=== PATIENT | male | born 1955 | race Caucasian/White ===

== ENCOUNTER → 2016-10-29 | Outpatient (CLI) | payer BC, OTHER ==
--- NOTE | 2016-10-29 12:07 | XR ---
EXAMINATION TYPE: XR shoulder complete LT DATE OF EXAM: 10/29/2016 COMPARISON: NONE HISTORY: 61-year-old male lifting injury yesterday and pain, sprain TECHNIQUE: 3 views FINDINGS: AC joint appears intact with minimal marginal spurring. Subacromial space is preserved without tendin ous or bursal calcifications. Minimal degenerative inferior humeral head spurring. No acute fracture, subluxation, or dislocation. Visualized left hemithorax is clear. IMPRESSION: No acute osseous abnormality seen.
== END | disposition home or self-care (01) ==
LOC: RADXRMAIN 11:41
PROVIDERS: ATTEND Emergency Medicine
DX: S43.402A Unspecified sprain of left shoulder joint, initial encounter (principal)

== ENCOUNTER → 2017-07-13 | Outpatient (CLI) | payer BC, OTHER ==
--- NOTE | 2017-07-13 21:44 | MR ---
EXAMINATION TYPE: MR shoulder LT wo con DATE OF EXAM: 07/13/2017 COMPARISON: Left shoulder x-ray October 29, 2016 HISTORY: Left shoulder pain into upper arm since injury summer 2016 per order with difficulty raising overhead per patient TECHNIQUE: Multiplanar, multisequence imaging of the left shoulder is performed without contrast. FINDINGS: Rotator Cuff: Supraspinatus and infraspinatus tendons are both intact humeral head attachment. Some i ncreased signal in distal tendon fibers is present. No significant retracted tear is identified . Sub scapularis tendon is intact. Some surrounding fluid is seen along superior aspect seen best axial nadeen ge 14 and sagittal image 21. Rotator cuff muscle bulk is preserved. Acromioclavicular Joint: There is capsular hypertrophy and joint space loss at acromioclavicular join t. Inferior fat plane is maintained. Distal acromion morphology is unremarkable. Glenohumeral Joint: There is fairly moderate size glenohumeral joint effusion. Labrum: The labrum appears grossly intact given limitation of non-arthrogram study. Biceps Tendon: The long head of biceps is in normal location within bicipital groove. There is focus of increased signal seen best sagittal image 15 consistent with partial tear intra-articular portion near anchor. Some surrounding fluid signal is likely product of glenohumeral joint effusion. Bone marrow signal: Some subchondral cystic change posterolateral humeral head is present. Other: No additional significant abnormality is appreciated. IMPRESSION: 1. No distinct rotator cuff or labral tear identified. Mild tendinosis distal supraspinatus and infra spinatus tendons. 2. Focal tendinosis/partial tear deep intra-articular portion of long head of biceps tendon. No full- thickness tear is seen. 3. Moderate size glenohumeral joint effusion.
== END | disposition home or self-care (01) ==
LOC: RADMRIMAIN 17:26
PROVIDERS: ATTEND Family Medicine
DX: S46.912A Strain of unspecified muscle, fascia and tendon at shoulder and upper arm level, left arm, initial encounter (principal); M25.412 Effusion, left shoulder; M67.814 Other specified disorders of tendon, left shoulder

== ENCOUNTER → 2017-08-24 | Outpatient (CLI) | payer BC, OTHER ==
[2017-08-24 08:57] LABS: Basophils % (A) 1 %; Eosinophils # (A) 0.1 k/uL (0-0.7); Eosinophils % (A) 1 %; HCT 43.6 % (39.0-53.0); Lymphocytes # (A) 2.2 k/uL (1.0-4.8); Lymphocytes % (A) 29 %; MCH 29.1 pg (25.0-35.0); MCHC 32.1 g/dL (31.0-37.0); MCV 90.8 fL (80.0-100.0); Mean Platelet Volume 7.4; Monocytes # (A) 0.6 k/uL (0-1.0); Monocytes % (A) 8 %; Neutrophils # (A) 4.6 k/uL (1.3-7.7); Neutrophils % (A) 60 %; Platelet Count 306 k/uL (150-450); RDW 13.1 % (11.5-15.5); WBC 7.6 k/uL (3.8-10.6)
[2017-08-24 09:07] LABS: Albumin 4.1 g/dL (3.5-5.0); Calcium 9.9 mg/dL (8.4-10.2); Total Bilirubin 0.7 mg/dL (0.2-1.3); Total Protein 6.7 g/dL (6.3-8.2)
== END | disposition home or self-care (01) ==
LOC: LABWHC1 08:17
PROVIDERS: ATTEND Family Medicine
DX: E78.5 Hyperlipidemia, unspecified (principal)
CPT/HCPCS: 36415; 80053; 80061; 85025

== ENCOUNTER → 2018-12-01 | Outpatient (CLI) | payer BC, OTHER ==
[2018-12-01 16:18] LABS: African American GFR (CKD) 67.8 (60.0-200.0); Anion Gap 9.3 mmol/L (4.00-12.00); BUN/Creat Ratio 12.31 Ratio (12.00-20.00); Calcium 9.6 mg/dL (8.7-10.3); Carbon Dioxide 23.7 mmol/L (21.6-31.8); Chol/HDL Ratio 4.12; LDL Cholesterol,Calculated 159.6 mg/dL (0.0-131.0); Non-African American GFR(CKD) 58.5 (60.0-200.0); Potassium 4.9 mmol/L (3.5-5.5); VLDL Calculation 24.4 mg/dL (5.00-40.00)
== END | disposition home or self-care (01) ==
LOC: LABWHC1 08:02
PROVIDERS: ATTEND Nurse Practitioner Adult Health
DX: Z00.01 Encounter for general adult medical examination with abnormal findings (principal); E78.5 Hyperlipidemia, unspecified; M19.91 Primary osteoarthritis, unspecified site; Z12.5 Encounter for screening for malignant neoplasm of prostate
CPT/HCPCS: 80061; 80048; 36415; G0103

== ENCOUNTER → 2020-12-10 | Outpatient (CLI) | payer BC, OTHER ==
--- NOTE | 2020-12-10 09:42 | CTL ---
EXAMINATION TYPE: CT Low Dose Lung DATE OF EXAM ORDERED: 12/10/2020 HISTORY: 65-year-old male Z77.090 Personal history of tobacco use, asbestos exposure. Lung cancer scr eening CT DLP: 98.[address] CTDI: 2.9 mGy Automated exposure control for dose reduction was used. SCREENING VISIT: Baseline COMPARISON: None TECHNIQUE: Low dose computed tomography scan was performed through the chest with coronal and sagitta l reconstructions. CT DIAGNOSTIC QUALITY: Satisfactory FINDINGS: Heart normal size without pericardial effusion. Three-vessel coronary artery calcifications are prese nt and are a marker for coronary artery disease. Aorta normal caliber with bovine configuration to the aortic arch. No thoracic lymphadenopathy by CT size criteria. Mild biapical pleural parenchymal scarring. Mild diffuse bronchial wall thickening. 3 mm pulmonary nodule left mid lung along the major fissure on axial image 98. No consolidation or pleural effusion. No honeycombing and no suspicious pleural plaques are seen. Visualized upper abdomen shows no gross abnormality. Bones: Some developing changes of dish made thoracic spine. No osseous destructive process. IMPRESSION: 1. LungRADS 2 - benign. Solitary 3 mm left mid lung pulmonary nodule on baseline. 2. No changes of asbestosis or asbestos related pleural disease at this time. 3. CAD with 3 vessel coronary artery calcifications. CT LUNG RAD AND CT CHEST RECOMMENDATION: Lung-Rad 2 Benign Appearance or Behavior: Continue annual sc reening with LDCT in 12 months.
== END | disposition home or self-care (01) ==
LOC: RADCTMAIN 07:14
PROVIDERS: ATTEND Internal Medicine
DX: Z12.2 Encounter for screening for malignant neoplasm of respiratory organs (principal); I25.10 Atherosclerotic heart disease of native coronary artery without angina pectoris; J92.0 Pleural plaque with presence of asbestos
CPT/HCPCS: 71271

== ENCOUNTER → 2020-12-10 | Outpatient (CLI) | payer BC, OTHER ==
--- NOTE | 2020-12-10 10:23 | US ---
EXAMINATION TYPE: US abdomen complete DATE OF EXAM: 12/10/2020 COMPARISON: NONE CLINICAL HISTORY: R10.13 Epigastric pain. Epigastric pain, nausea x 2 months EXAM MEASUREMENTS: Liver Length: 13.8 cm Gallbladder Wall: 0.1 cm CBD: 0.5 cm Spleen Length: 8.2 cm Right Kidney: 9.3 x 5.5 x 4.4 cm Left Kidney: 10.1 x 4.6 x 5.4 cm Pancreas: hyperechoic, prominent pancreatic duct = 3.3mm Liver: wnl Gallbladder: multiple mid and fundal non mobile hyperechoic wall foci noted suggests adenomyomatosis . Evidence for sonographic Nation's sign: no CBD: wnl Spleen: wnl Right Kidney: No hydronephrosis or masses seen Left Kidney: No hydronephrosis or masses seen Upper IVC: wnl Abd Aorta: size is wnl, intimal wall thickening is noted mid and inferiorly The liver is homogenous. The intrahepatic portion of the IVC is within normal limits. Common bile du ct is unremarkable. The visualized portions of the pancreas are homogenous. The spleen is unremarka ble. Kidneys are symmetric and free of hydronephrosis. No renal lesions are seen. IMPRESSION: Adenomyomatosis of the gallbladder.
== END | disposition home or self-care (01) ==
LOC: RADUSWWP 09:28
PROVIDERS: ATTEND Internal Medicine
DX: K82.8 Other specified diseases of gallbladder (principal)
CPT/HCPCS: 76700

== ENCOUNTER 2021-07-29 19:54 | Emergency (ER) | payer BC, MEDICARE ==
[2021-07-29] MEDS ORDERED: SODIUM CHLORIDE 0.9% 500 ML 500 ML IV STA (22:54)
--- NOTE | 2021-07-29 22:56 | ED ---
General Adult HPI - General Chief complaint: Abdominal Pain Stated complaint: Abdominal pain, nausea Time Seen by Provider: 07/29/21 22:46 Source: patient, RN notes reviewed Mode of arrival: ambulatory Limitations: no limitations - History of Present Illness Initial comments: Patient is a pleasant [age]-year-old male presenting to the emergency Departm ent with abdominal discomfort. Onset of symptoms was yesterday evening. Patient felt more of an ache this morning. Discomfort was epigastric however now is more right lower. Patient has mild nausea and mild decreased appetite. No vomiting. No constipation or diarrhea. No fever or chills. No back pain. No history of similar symptoms previously. Patient refuses pain and nausea medicine - Related Data Home Medications Medication Instructions Recorded Confirmed Multivitamins, Thera [Multivitamin 1 tab PO DAILY 07/29/21 07/29/21 (formulary)] Allergies Allergy/AdvReac Type Severity Reaction Status Date / Time methocarbamol [From Robaxin] Allergy Unknown Verified 07/29/21 22:58 Review of Systems ROS Statement: Those systems with pertinent positive or pertinent negative responses have been documented in the HPI. ROS Other: All systems not noted in ROS Statement are negative. Constitutional: Denies: fever Eyes: Denies: eye pain ENT: Denies: ear pain Respiratory: Denies: cough Cardiovascular: Denies: chest pain Endocrine: Denies: fatigue Gastrointestinal: Reports: abdominal pain, nausea. Denies: vomiting, diarrhea Genitourinary: Denies: dysuria Musculoskeletal: Denies: back pain Skin: Denies: rash Neurological: Denies: weakness Past Medical History Past Medical History: No Reported History History of Any Multi-Drug Resistant Organisms: None Reported Past Surgical History: Cholecystectomy Additional Past Surgical History / Comment(s): left shoulder surgery Past Psychological History: No Psychological Hx Reported Past Alcohol Use History: Rare Past Drug Use History: None Reported General Exam Limitations: no limitations General appearance: alert, in no apparent distress Head exam: Present: normocephalic Eye exam: Present: normal appearance Neck exam: Present: normal inspection Respiratory exam: Present: normal lung sounds bilaterally Cardiovascular Exam: Present: regular rate, normal rhythm Expanded Peripheral pulses: 2+: Dorsalis Pedis (R), Dorsalis Pedis (L) GI/Abdominal exam: Present: soft, tenderness (Mild tenderness epigastric and right lower quadrant), normal bowel sounds. Absent: distended, guarding, rebound, rigid, pulsatile mass Extremities exam: Present: normal inspection Neurological exam: Present: alert Psychiatric exam: Present: normal affect, normal mood Skin exam: Present: normal color Course Vital Signs 07/29/21 20:29 Temperature 98.4 F Pulse Rate 84 Respiratory 16 Rate Blood Pressure 153/88 O2 Sat by Pulse 96 Oximetry Medical Decision Making - Medical Decision Making Patient reevaluated and staying at bedside in no distress. Patient and family updated on results and need for follow-up - Lab Data Result diagrams: 07/29/21 23:00 07/29/21 23:00 Lab Results 07/29/21 07/29/21 07/29/21 Range/Units 23:00 23:00 23:00 WBC 8.8 (3.8-10.6) k/uL RBC 4.68 (4.30-5.90) m/uL Hgb 14.5 (13.0-17.5) gm/dL Hct 43.8 (39.0-53.0) % MCV 93.6 (80.0-100.0) fL MCH 31.0 (25.0-35.0) pg MCHC 33.1 (31.0-37.0) g/dL RDW 12.3 (11.5-15.5) % Plt Count 292 (150-450) k/uL MPV 8.1 Neutrophils % 45 % Lymphocytes % 42 % Monocytes % 7 % Eosinophils % 2 % Basophils % 2 % Neutrophils # 4.0 (1.3-7.7) k/uL Lymphocytes # 3.7 (1.0-4.8) k/uL Monocytes # 0.6 (0-1.0) k/uL Eosinophils # 0.2 (0-0.7) k/uL Basophils # 0.1 (0-0.2) k/uL PT 10.0 (9.0-12.0) sec INR 0.9 (<1.2) APTT 23.8 (22.0-30.0) sec Sodium 137 (137-145) mmol/L Potassium 4.3 (3.5-5.1) mmol/L Chloride 106 (98-107) mmol/L Carbon Dioxide 22 (22-30) mmol/L Anion Gap 9 mmol/L BUN 18 (9-20) mg/dL Creatinine 1.17 (0.66-1.25) mg/dL Est GFR (CKD-EPI)AfAm 75 (>60 ml/min/1.73 sqM) Est GFR (CKD-EPI)NonAf 65 (>60 ml/min/1.73 sqM) Glucose 94 (74-99) mg/dL Calcium 9.2 (8.4-10.2) mg/dL Total Bilirubin 0.5 (0.2-1.3) mg/dL AST 28 (17-59) U/L ALT 31 (4-49) U/L Alkaline Phosphatase 59 (38-126) U/L Total Protein 7.0 (6.3-8.2) g/dL Albumin 4.3 (3.5-5.0) g/dL Amylase 100 (30-110) U/L Lipase 442 H (23-300) U/L Urine Color Urine Appearance (Clear) Urine pH (5.0-8.0) Ur Specific [place] (1.001-1.035) Urine Protein (Negative) Urine Glucose (UA) (Negative) Urine Ketones (Negative) Urine Blood (Negative) Urine Nitrite (Negative) Urine Bilirubin (Negative) Urine Urobilinogen (<2.0) mg/dL Ur Leukocyte Esterase (Negative) Urine RBC (0-5) /hpf Urine WBC (0-5) /hpf Urine Mucus (None) /hpf 07/29/21 Range/Units 23:24 WBC (3.8-10.6) k/uL RBC (4.30-5.90) m/uL Hgb (13.0-17.5) gm/dL Hct (39.0-53.0) % MCV (80.0-100.0) fL MCH (25.0-35.0) pg MCHC (31.0-37.0) g/dL RDW (11.5-15.5) % Plt Count (150-450) k/uL MPV Neutrophils % % Lymphocytes % % Monocytes % % Eosinophils % % Basophils % % Neutrophils # (1.3-7.7) k/uL Lymphocytes # (1.0-4.8) k/uL Monocytes # (0-1.0) k/uL Eosinophils # (0-0.7) k/uL Basophils # (0-0.2) k/uL PT (9.0-12.0) sec INR (<1.2) APTT (22.0-30.0) sec Sodium (137-145) mmol/L Potassium (3.5-5.1) mmol/L Chloride (98-107) mmol/L Carbon Dioxide (22-30) mmol/L Anion Gap mmol/L BUN (9-20) mg/dL Creatinine (0.66-1.25) mg/dL Est GFR (CKD-EPI)AfAm (>60 ml/min/1.73 sqM) Est GFR (CKD-EPI)NonAf (>60 ml/min/1.73 sqM) Glucose (74-99) mg/dL Calcium (8.4-10.2) mg/dL Total Bilirubin (0.2-1.3) mg/dL AST (17-59) U/L ALT (4-49) U/L Alkaline Phosphatase (38-126) U/L Total Protein (6.3-8.2) g/dL Albumin (3.5-5.0) g/dL Amylase (30-110) U/L Lipase (23-300) U/L Urine Color Yellow Urine Appearance Clear (Clear) Urine pH 5.5 (5.0-8.0) Ur Specific [place] 1.019 (1.001-1.035) Urine Protein Negative (Negative) Urine Glucose (UA) Negative (Negative) Urine Ketones Negative (Negative) Urine Blood Negative (Negative) Urine Nitrite Negative (Negative) Urine Bilirubin Negative (Negative) Urine Urobilinogen <2.0 (<2.0) mg/dL Ur Leukocyte Esterase Negative (Negative) Urine RBC <1 (0-5) /hpf Urine WBC <1 (0-5) /hpf Urine Mucus Rare H (None) /hpf - Radiology Data Radiology results: report reviewed (Computed tomography scan abdomen pelvis does not reveal acute abnormality) Disposition Clinical Impression: Abdominal pain Disposition: HOME SELF-CARE Condition: Stable Instructions (If sedation given, give patient instructions): Abdominal Pain (ED) Additional Instructions: Please do follow-up to primary care physician in the next day or 2 for recheck. [id number] Pepcid until follow-up. Return for increased pain, vomiting, fever, worsening or changing symptoms or other concerns. Is patient prescribed a controlled substance at d/c from ED?: No Referrals: Erik Mejia MD [Primary Care Provider] - 1-2 days Time of Disposition: 00:52
[2021-07-29 23:21] LABS: Basophils # (A) 0.1 k/uL (0-0.2); Basophils % (A) 2 %; Eosinophils # (A) 0.2 k/uL (0-0.7); Eosinophils % (A) 2 %; HCT 43.8 % (39.0-53.0); HGB 14.5 gm/dL (13.0-17.5); Lymphocytes # (A) 3.7 k/uL (1.0-4.8); Lymphocytes % (A) 42 %; MCHC 33.1 g/dL (31.0-37.0); MCV 93.6 fL (80.0-100.0); Mean Platelet Volume 8.1; Monocytes # (A) 0.6 k/uL (0-1.0); Monocytes % (A) 7 %; Neutrophils % (A) 45 %; Platelet Count 292 k/uL (150-450); RBC 4.68 m/uL (4.30-5.90); RDW 12.3 % (11.5-15.5); WBC 8.8 k/uL (3.8-10.6)
[2021-07-29 23:34] LABS: INR 0.9 (<1.2); Partial Thromboplastin Time 23.8 sec (22.0-30.0)
[2021-07-30 00:02] LABS: Albumin 4.3 g/dL (3.5-5.0); Calcium 9.2 mg/dL (8.4-10.2); Potassium 4.3 mmol/L (3.5-5.1); Total Bilirubin 0.5 mg/dL (0.2-1.3)
[2021-07-30 00:12] LABS: Appearance,Urine Clear (Clear); Bilirubin,Urine Negative (Negative); Blood,Urine Negative (Negative); Color,Urine Yellow; Glucose,Urine (UA) Negative (Negative); Ketones,Urine Negative (Negative); Leukocyte Esterase,Urine Negative (Negative); Mucus,Urine Rare /hpf; Nitrite,Urine Negative (Negative); PH, Urine 5.5 (5.0-8.0); Protein,Urine Negative (Negative); RBC,Urine <1 /hpf (0-5); Specific Gravity,Urine 1.019 (1.001-1.035); Urobilinogen,Urine <2.0 mg/dL (<2.0); WBC,Urine <1 /hpf (0-5)
--- NOTE | 2021-07-30 00:38 | CT ---
EXAMINATION TYPE: CT abdomen pelvis w con DATE OF EXAM: 07/30/2021 COMPARISON: None HISTORY: RLQ pain CT DLP: 871.5 mGycm Automated exposure control for dose reduction was used. CONTRAST: Performed with IV Contrast, patient injected with 100 mL of Isovue 300. Images obtained from the diaphragm to the floor the pelvis with IV contrast. Lung bases are clear. There is no pleural effusion. Heart size is normal. There is no pericardial eff usion. Liver spleen and stomach pancreas appear intact. There are clips from cholecystectomy. The bile ducts are not dilated. There is no adrenal mass. Kidneys show satisfactory contrast opacification. There is no hydronephrosi s. The ureters are not dilated. There is no retroperitoneal adenopathy. Appendix is posterior and gabby ears normal. The bladder distends smoothly. There is no inguinal hernia. No free fluid in the pelvis. There is no mesenteric edema. No ascites or free air. No bowel obstruction. Lumbar vertebrae show mild dextroscoliosis. Degenerative disc space narrowing is present from L2 to S 1. No compression fracture. Bony pelvis is intact. The hip joints are intact. IMPRESSION: There is mild lumbar dextroscoliosis. Spondylotic changes. Normal appendix. No acute abnormality of t he abdomen and pelvis.
[2021-07-30] MEDS ORDERED: FAMOTIDINE 20 MG TAB PO STA (00:52)
[2021-07-30 01:14] VITALS: BP 127/83; PULSE 65; RESP 18; TEMP 97
== END 2021-07-30 01:14 | disposition home or self-care (01) ==
LOC: EC 19:54
DX: R10.31 Right lower quadrant pain (principal)
CPT/HCPCS: 36415; 74177; 80053; 81003; 82150; 83690; 85025; 85610; 85730; 99284

== ENCOUNTER → 2021-08-17 | Outpatient (CLI) | payer BC ==
[2021-08-17 09:12] LABS: Basophils # (A) 0.1 k/uL (0-0.2); Basophils % (A) 1 %; Eosinophils # (A) 0.1 k/uL (0-0.7); Eosinophils % (A) 1 %; HCT 44.7 % (39.0-53.0); HGB 14.8 gm/dL (13.0-17.5); Lymphocytes # (A) 1.8 k/uL (1.0-4.8); Lymphocytes % (A) 29 %; MCH 31.4 pg (25.0-35.0); Monocytes # (A) 0.4 k/uL (0-1.0); Monocytes % (A) 7 %; Neutrophils # (A) 3.7 k/uL (1.3-7.7); Neutrophils % (A) 60 %; Platelet Count 312 k/uL (150-450); RBC 4.71 m/uL (4.30-5.90); RDW 12.9 % (11.5-15.5); WBC 6.2 k/uL (3.8-10.6)
[2021-08-17 09:15] LABS: Ionized Calcium 5.2 mg/dL (4.5-5.3)
[2021-08-17 11:41] LABS: Protein, Total 6.6 g/dL (6.2-8.2)
[2021-08-17 11:59] LABS: Calcium 9.6 mg/dL (8.7-10.3)
[2021-08-19 15:51] LABS: Albumin 4.21 g/dL (3.80-4.90); Gamma Globulin 0.75 g/dL (0.70-1.50)
== END | disposition home or self-care (01) ==
LOC: LABWHC1 08:36
PROVIDERS: ATTEND Internal Medicine
DX: E83.52 Hypercalcemia (principal)
CPT/HCPCS: 36415; 82306; 82310; 82330; 82652; 83519; 83970; 84165; 85025

== ENCOUNTER → 2021-08-27 | Outpatient (CLI) | payer BC ==
--- NOTE | 2021-08-27 11:10 | CA ---
Stress Echo Report Damaso Gerard Age: 66 Gender: M : 1955 Exam Date: 08/27/2021 09:19 Exam Location: [facility] Ht (in): 66 Wt (lb): 164 Ordering Physician: Aurleia Tse MD Referring Physician: aurelia tse,, Masonry Installer: Gertrude Altamirano RDCS Technologist Procedure CPT: Indication: I25.10 ATHSCL HEART DISEASE OF [place] CORONARY ICD-9 Codes: Rhythm: Patient History: Cardiac Medications: Medications in past 24 hours: Contrast: Stress Results Protocol: Jorden Total dose(mL): Exercise Duration (min:sec): 9:[address] Depression (mm): Angina Score: Abad Score: METS: 10.9 Resting HR: 68 Resting BP: 130 / 80 Peak HR: 152 Peak BP: 188 / 66 Max Predicted HR: 155 98 % Max Predicted HR Target HR: 132 Double Product: 19204 Stress Summary: BP Response: Reason for Termination: Cardiac Symptoms: ECG Analysis Resting ECG: Normal sinus rhythm left axis deviation and nonspecific intraventricular conduction delay Stress ECG: No evidence of ST segment depression Arrhythmia: Echo Analysis Resting Echo: Normal left ventricular size wall motion systolic function Peak Echo Analysis: Normal hyperdynamic response of all segments of myocardium MEASUREMENTS (Male/Female) Normal Values CONCLUSIONS Excellent exercise tolerance Negative stress test by EKG criteria No exercise induced wall motion abnormalities Dr. Bennett Cade MD (Electronically Signed) Final Date: 27 Aug 2021 11:09
== END | disposition home or self-care (01) ==
LOC: RADECHMAIN 08:47
PROVIDERS: ATTEND Internal Medicine
DX: I25.10 Atherosclerotic heart disease of native coronary artery without angina pectoris (principal)
CPT/HCPCS: 93351

== ENCOUNTER 2021-10-14 21:04 | Emergency (ER) | payer BC ==
[2021-10-14 21:38] VITALS: BP 134/94; PULSE 63; RESP 18; TEMP 97.8
--- NOTE | 2021-10-14 22:10 | XR ---
EXAMINATION TYPE: XR chest 2V DATE OF EXAM: 10/14/2021 COMPARISON: NONE HISTORY: Chest pain TECHNIQUE: 2 views FINDINGS: Heart and mediastinum are normal. Lungs are clear. Diaphragm is normal. Bony thorax appears normal. IMPRESSION: Normal chest.
[2021-10-14 22:38] LABS: Basophils # (A) 0.1 k/uL (0-0.2); Basophils % (A) 2 %; Eosinophils # (A) 0.2 k/uL (0-0.7); Eosinophils % (A) 2 %; HGB 13.9 gm/dL (13.0-17.5); Lymphocytes # (A) 3.2 k/uL (1.0-4.8); Lymphocytes % (A) 38 %; MCH 31.7 pg (25.0-35.0); MCHC 33.1 g/dL (31.0-37.0); MCV 95.7 fL (80.0-100.0); Mean Platelet Volume 7.8; Monocytes # (A) 0.6 k/uL (0-1.0); Monocytes % (A) 7 %; Neutrophils % (A) 49 %; Platelet Count 281 k/uL (150-450); RBC 4.39 m/uL (4.30-5.90); RDW 12.4 % (11.5-15.5); WBC 8.3 k/uL (3.8-10.6)
[2021-10-14 22:42] LABS: Albumin 4.2 g/dL (3.5-5.0); Calcium 9.2 mg/dL (8.4-10.2); Magnesium 2.3 mg/dL (1.6-2.3); Potassium 4.5 mmol/L (3.5-5.1); Total Bilirubin 0.4 mg/dL (0.2-1.3); Total Protein 6.7 g/dL (6.3-8.2)
[2021-10-14 22:47] LABS: INR 0.9 (<1.2); Partial Thromboplastin Time 23.9 sec (22.0-30.0)
--- NOTE | 2021-10-15 00:34 | ED ---
Chest Pain HPI - General Chief Complaint: Chest Pain Stated Complaint: Chest Pain, Shortness of Breath Time Seen by Provider: 10/15/21 00:33 Source: patient Mode of arrival: ambulatory Limitations: no limitations - Related Data Home Medications Medication Instructions Recorded Confirmed Multivitamins, Thera [Multivitamin 1 tab PO DAILY 07/29/21 07/29/21 (formulary)] Allergies Allergy/AdvReac Type Severity Reaction Status Date / Time methocarbamol [From Robaxin] Allergy Unknown Verified 10/14/21 21:38 Review of Systems ROS Statement: Those systems with pertinent positive or pertinent negative responses have been documented in the HPI. ROS Other: All systems not noted in ROS Statement are negative. EKG Findings - EKG Comments: EKG Findings:: EKG sinus bradycardia 57 MT 124 QRS 86 QTc 385 Past Medical History Past Medical History: No Reported History History of Any Multi-Drug Resistant Organisms: None Reported Past Surgical History: Cholecystectomy Additional Past Surgical History / Comment(s): left shoulder surgery Past Psychological History: No Psychological Hx Reported Smoking Status: Light tobacco smoker Past Alcohol Use History: Rare Past Drug Use History: None Reported General Exam Limitations: no limitations Course Vital Signs 10/14/21 21:36 Temperature 97.8 F Pulse Rate 63 Respiratory 18 Rate Blood Pressure 134/94 O2 Sat by Pulse 99 Oximetry Disposition Clinical Impression: Atypical chest pain, Chest pain Disposition: HOME SELF-CARE Condition: Undetermined Instructions (If sedation given, give patient instructions): Chest Pain (ED) Is patient prescribed a controlled substance at d/c from ED?: No Referrals: Erik Mejia MD [Primary Care Provider] - 1-2 days Freddy Skaggs DO [STAFF PHYSICIAN] - 1-2 days
== END 2021-10-15 01:49 | disposition home or self-care (01) ==
LOC: EC 21:04
DX: R07.89 Other chest pain (principal); F17.200 Nicotine dependence, unspecified, uncomplicated
CPT/HCPCS: 36415; 71046; 80053; 83735; 84484; 85025; 85610; 85730; 93005; 99285

== ENCOUNTER 2021-11-04 09:08 | Day surgery (SDC) | payer BC ==
[~2021-11-04 09:08] MED LIST: ALPRAZolam 0.25 MG TAB PO PRN; ALPRAZolam 0.5 MG TAB PO PRN; ASPIRIN 325 MG TAB PO STA; NITROGLYCERIN SL TABS 0.4 MG TAB SUBLINGUAL PRN; SODIUM CHLORIDE 0.9% 1,000 ML in EMPTY BAG 1 BAG IV SCH
[2021-11-04] MEDS ORDERED: SODIUM CHLORIDE 0.9% 1,000 ML IV ONE (09:38)
[2021-11-04 10:01] VITALS: RESP 16; TEMP 98.7
[2021-11-04] MEDS ORDERED: VERAPAMIL 2.5 MG/ML 2 ML AMP ONE (10:12)
[2021-11-04] MEDS ORDERED: HEPARIN SODIUM 1,000 UN/ML (10ML VL) ONE (10:32)
[2021-11-04] MEDS ORDERED: fentaNYL (PF) 50 MCG/ML 2 ML AMP ONE (10:33)
[2021-11-04] MEDS ORDERED: MIDAZOLAM 2 MG/2 ML VIAL IVP ONE (10:43)
[2021-11-04] MEDS ORDERED: fentaNYL (PF) 50 MCG/ML 2 ML AMP IVP ONE (10:43)
[2021-11-04] MEDS ORDERED: LIDOCAINE 1% INJ 10MG/ML (5 ML VIAL-PF) SQ ONE (10:44)
[2021-11-04] MEDS ORDERED: VERAPAMIL SYRINGE (5 MG/10 ML) INTRAARTER ONE (10:45)
[2021-11-04] MEDS: HEPARIN SODIUM 1,000 UN/ML (10ML VL) IV ONE ×3 (10:47→11:22)
[2021-11-04] MEDS ORDERED: CLOPIDOGREL 75 MG TAB ONE (10:58)
[2021-11-04] MEDS ORDERED: CLOPIDOGREL 75 MG TAB PO ONE (11:03)
[2021-11-04] MEDS ORDERED: NITROGLYCERIN 1000MCG/10ML SYRINGE INTRACORON ONE (11:12)
[2021-11-04] MEDS ORDERED: IOPAMIDOL-370 125ML BTL INJ ONE (11:20)
[2021-11-04] MEDS ORDERED: SODIUM CHLORIDE 0.9% 1,000 ML IV SCH (11:30)
[2021-11-04 19:16] VITALS: BP 134/67; PULSE 66
[2021-11-04] MEDS ORDERED: ATROPINE SULFATE 0.1 MG/ML 10ML SYRINGE IV PRN (20:29)
[2021-11-04] MEDS ORDERED: NITROGLYCERIN SL TABS 0.4 MG TAB SUBLINGUAL PRN (20:29)
[2021-11-04] MEDS ORDERED: RX INFO: IV CONTRAST WAS GIVEN 1 EACH MISC MISCELLANE PRN (20:29)
[2021-11-04] MEDS ORDERED: MAG HYDROX/AL HYDROX/SIMETH 30 ML CUP PO PRN (20:29)
[2021-11-04] MEDS ORDERED: ZOLPIDEM 5 MG TAB PO PRN (20:29)
--- NOTE | 2021-11-04 20:29 | P.PRCINT ---
Percutaneous Coronary Int. - Percutaneous Coronary Intervention Percutaneous Coronary Intervention: PROCEDURES PERFORMED: Left heart catheterization, bilateral coronary angiography, PCI mid RCA with a 2.75 x 12mm Xience SRINIVAS INDICATION: Abnormal stress test, abnormal CTA, increased chest pain consistent with unstable angina, inability to take BBlocker secondary to lightheadedness CONSENT:I have discussed the risks, benefits and alternative therapies for the above-mentioned procedure and for both sedation/analgesia as well as necessary blood product administration, if indicated, as they pertain to this patient. The patient has indicated understanding and acceptance of the risks and procedures discussed. PROCEDURE: After the risks, benefits and alternatives of the above mentioned procedure explained in detail with the patient, informed consent was obtained. Patient was taken to the catheterization lab and prepped and draped in usual fashion. 1% lidocaine was used to anesthetize the right radial artery. A 6- Cypriot sheath was placed in the right radial artery using modified Seldinger technique. Left coronary angiography was performed with a 5-Cypriot JL 3.5 catheter and right coronary angiography was performed with a 5-Cypriot FR5 catheter in various views. The FR5 catheter was inserted into the left ventricle and pressure measurements were obtained. The decision was made to perform PCI of the RCA. A 6Fr AL 0.75 guide was used to engage the RCA. A 0.014 BMW wire was briefly attempted and then a 0.014 Fielder XT was easily wired into the distal RCA. Predilation was performed with a 1.5 then 2.5 balloon. Next a 2.75 x 12mm Xience SRINIVAS was placed in the mid RCA. The wire was removed and final angiograms were performed. Preintervention there was 99% mid RCA and BARTOLOME 2 flow and post intervention there was 0% stenosis and BARTOLOME 3 flow. The right radial sheath was removed and a TR band was placed with hemostasis achieved. The patient tolerated the procedure well. Patient was transported back to the post catheterization holding area in stable condition. Conscious Sedation: Patient was monitored under the direct supervision of vision of myself for conscious sedation using Versed and fentanyl for a total duration of 37 minutes HEMODYNAMICS: Aorta: 131/69 LV: 134/2, LVEDP 10 SELECTIVE CORONARY ARTERIOGRAPHY: LEFT MAIN: The left main is a large caliber vessel which bifurcates into the LAD and circumflex. There is no significant stenosis. LEFT ANTERIOR DESCENDING CORONARY ARTERY: LAD is a large caliber vessel which wraps around to the apex. There is a proximal LAD 40-50% stenosis and otherwise mild 10-20% mid LAD stenosis. There are mild left to right collaterals. LEFT CIRCUMFLEX CORONARY ARTERY: Left circumflex is a moderate to large caliber vessel with proximal circumflex 40% stenosis, OM2 30% stenosis and otherwise mild luminal irregularities. RIGHT CORONARY ARTERY: The right coronary artery is a moderate caliber vessel which gives off the PDA and PLV and is dominant. There is a mid RCA 99% stenosis and otherwise diffuse 20-30% stenosis. FINAL IMPRESSION: 1. CAD as described above with 40-50% proximal LAD, 40% proximal circumflex, 99% mid RCA 2. Normal left sided filling pressures 3. S/p PCI mid RCA with a 2.75 x 12mm Xience SRINIVAS 4. Symptoms consistent with unstable angina PLAN: 1. Aggressive risk factor modification per most recent ACC/AHA guidelines. 2. Continue dual antiplatelets for 12 months with aspirin and Plavix. 3. No BBlocker given lightheadedness and inability to take Metoprolol.
[2021-11-04] MEDS ORDERED: SODIUM CHLORIDE 0.9% 1,000 ML in EMPTY BAG 1 BAG IV SCH (20:30)
[2021-11-04] MEDS ORDERED: ATORVASTATIN 80 MG TAB PO SCH (21:00)
[2021-11-04] MEDS ORDERED: ATORVASTATIN 40 MG TAB PO SCH (21:00)
[2021-11-05] MEDS ORDERED: ASPIRIN 81 MG PO SCH ×2 (09:00)
[2021-11-05] MEDS ORDERED: CLOPIDOGREL 75 MG TAB PO SCH ×2 (09:00)
== END 2021-11-04 16:30 | disposition home or self-care (01) ==
LOC: CATHCVL 09:08
PROVIDERS: ATTEND Internal Medicine
DX: R07.9 Chest pain, unspecified (principal); I25.110 Atherosclerotic heart disease of native coronary artery with unstable angina pectoris; E78.5 Hyperlipidemia, unspecified; Z82.49 Family history of ischemic heart disease and other diseases of the circulatory system; Z20.822 Contact with and (suspected) exposure to COVID-19; Z72.0 Tobacco use; Z79.82 Long term (current) use of aspirin; Z79.899 Other long term (current) drug therapy
CPT/HCPCS: 93458; 87635; C9600; C1769 ×3; C1887; C1894; C1725 ×2; C1874; J2250; J2001; J3010; J1644; Q9967

== ENCOUNTER → 2021-12-24 | Outpatient (CLI) | payer BC ==
--- NOTE | 2021-12-31 09:14 | CTL ---
EXAMINATION TYPE: CT Low Dose Lung DATE OF EXAM ORDERED: 12/25/2021 HISTORY: . Lung cancer screening CT DLP: 114.[address] CTDI: 3.10 mGy Automated exposure control for dose reduction was used. SCREENING VISIT: COMPARISON: 12/10/2020 TECHNIQUE: Low dose computed tomography scan was performed through the chest at 1 mm thick sections a nd reconstructed images in multiple planes at 1 mm and [address] DIAGNOSTIC QUALITY: Satisfactory FINDINGS: Heart normal size without pericardial effusion. Three-vessel coronary artery calcifications are prese nt and are a marker for coronary artery disease. Aorta normal caliber with bovine configuration to th e aortic arch. No thoracic lymphadenopathy by CT size criteria. Mild biapical pleural parenchymal sca rring. Mild diffuse bronchial wall thickening. 3 mm pulmonary nodule left mid lung along the major fissure stable. There is a 5 mm nodule right upper lobe anteriorly similar pleural location axial image 148 No consolidation or pleural effusion. No honeycombing and no suspicious pleural plaques are seen. Sub segmental changes most likely atelectasis. Visualized upper abdomen shows no gross abnormality. Bones: Some developing changes of dish made thoracic spine. No osseous destructive process. IMPRESSION: 1. LungRADS 2 - benign. Solitary 3 mm left mid lung pulmonary nodule is stable. There is a new 5 mm s ubpleural nodule right upper lobe too small to characterize. 2. CAD with 3 vessel coronary artery calcifications. CT LUNG RAD AND CT CHEST RECOMMENDATION: Lung-Rad 2 Benign Appearance or Behavior: Continue annual sc reening with LDCT in 12 months.
== END | disposition home or self-care (01) ==
LOC: RADCTMAIN 13:49
PROVIDERS: ATTEND Internal Medicine
DX: Z12.2 Encounter for screening for malignant neoplasm of respiratory organs (principal); I25.10 Atherosclerotic heart disease of native coronary artery without angina pectoris; R91.1 Solitary pulmonary nodule
CPT/HCPCS: 71271

== ENCOUNTER → 2022-01-25 | Outpatient (CLI) | payer BC ==
[2022-01-25 16:47] LABS: ALT 51 U/L (10-49); AST 32 U/L (14-35); Chol/HDL Ratio 2.12 Ratio; LDL Cholesterol,Calculated 54.2 mg/dL (0.0-131.0); VLDL Calculation 15.08 mg/dL (5.00-40.00)
== END | disposition home or self-care (01) ==
LOC: LABWHC1 08:19
PROVIDERS: ATTEND Internal Medicine
DX: E78.2 Mixed hyperlipidemia (principal)
CPT/HCPCS: 36415; 80061; 84450; 84460

== ENCOUNTER → 2023-07-13 | Outpatient (CLI) | payer BC ==
--- NOTE | 2023-07-20 09:45 | CT ---
EXAMINATION TYPE: CT chest wo con CT DLP: 553 mGycm, Automated exposure control for dose reduction was used. DATE OF EXAM: 07/13/2023 9:16 AM COMPARISON: CT chest 06/27/2022 , and before. CLINICAL INDICATION:Male, 68 years old with history of R91.1 LUNG NODULE; PHH, f/u lung nodule TECHNIQUE: Multiple axial images were obtained through the chest. Sagittal and coronal reformats were created for review. Contrast used: mL of (None if empty) Oral contrast used: (None if empty) FINDINGS: LUNGS/ PLEURA: Stable 2 mm micronodule in the left upper lobe along the major fissure on image 24. No new or enlargi ng nodules of concern. No consolidation, pleural effusion, pneumothorax. AIRWAY: Central airways are patent. LOWER NECK: No significant findings. MEDIASTINUM: No enlarged mediastinal nodes. HEART: Normal heart size. Severe coronary artery calcification and/or stents. No appreciable pericard ial effusion. VASCULATURE: Mild to moderate atherosclerotic calcifications of the aorta and branches. Ascending ao rta is 3 CM, descending is 2.6 CM. Aorta is considered within normal limits. Pulmonary trunk measures 2.2 CM. Pulmonary trunk is normal in size. Vessels otherwise not further ass essed without contrast. SOFT TISSUES/LYMPH NODES: Mild bilateral gynecomastia changes. No axillary adenopathy. UPPER ABDOMEN: Cholecystectomy clips. No significant findings. MUSCULOSKELETAL: No acute osseous abnormalities. Mild disc degeneration changes are present throughou t the thoracolumbar spine. Some bridging syndesmophytes suggest developing DISH. IMPRESSION: Stable tiny pulmonary nodularity. Per Fleischner Society guidelines, no further follow-up is required or recommended.
== END | disposition home or self-care (01) ==
LOC: RADCTMAIN 09:00
PROVIDERS: ATTEND Internal Medicine
DX: R91.8 Other nonspecific abnormal finding of lung field (principal)
CPT/HCPCS: 71250

== ENCOUNTER → 2024-03-12 | Outpatient (CLI) | payer BC ==
[2024-03-12 11:42] LABS: Ionized Calcium 5.3 mg/dL (4.5-5.3)
[2024-03-12 12:51] LABS: ALT 34 U/L (4-49); AST 27 U/L (17-59); African American GFR (CKD) 74 (>60 ml/min/1.73 sqM); Albumin 4.4 g/dL (3.5-5.0); Albumin/Globulin Ratio 1.9; Alkaline Phosphatase 61 U/L (38-126); Anion Gap 4 mmol/L; Blood Urea Nitrogen 18 mg/dL (9-20); Calcium 9.7 mg/dL (8.4-10.2); Carbon Dioxide 26 mmol/L (22-30); Chloride 107 mmol/L (98-107); Globulin 2.3 g/dL; Glucose 88 mg/dL (74-99); Non-African American GFR(CKD) 64 (>60 ml/min/1.73 sqM); Potassium 5.4 mmol/L (3.5-5.1); Sodium 137 mmol/L (137-145); Total Protein 6.7 g/dL (6.3-8.2)
[2024-03-12 22:55] LABS: Basophils # (A) 0.05 X 10*3/uL (0.00-0.10); Basophils % (A) 0.7 %; Eosinophils # (A) 0.08 X 10*3/uL (0.04-0.35); Eosinophils % (A) 1.1 %; HCT 45.9 % (39.6-50.0); HGB 14.9 g/dL (13.0-17.0); Lymphocytes # (A) 2.37 X 10*3/uL (0.90-5.00); Lymphocytes % (A) 32.6 %; MCH 30.8 pg (27.0-32.0); MCHC 32.5 g/dL (32.0-37.0); MCV 94.8 FL (80.0-97.0); Mean Platelet Volume 11.1 FL (9.5-12.2); Monocytes # (A) 0.72 X 10*3/uL (0.20-1.00); Monocytes % (A) 9.9 %; NRBC Per 100 WBC 0 X 10*3/uL (0.00-0.01); Neutrophils # (A) 4.04 X 10*3/uL (1.80-7.70); Neutrophils % (A) 55.4 %; Platelet Count 323 X 10*3/uL (140-440); RBC 4.84 X 10*6/uL (4.40-5.60); RDW 12.3 % (11.5-14.5); WBC 7.28 X 10*3/uL (4.50-10.00)
[2024-03-12 23:12] LABS: Chol/HDL Ratio 1.95 Ratio; LDL Cholesterol,Calculated 55.1 mg/dL (0.0-131.0); Prostate Specific Antigen 1.12 ng/mL (0.000-4.500); VLDL Calculation 12.28 mg/dL (5.00-40.00)
== END | disposition home or self-care (01) ==
LOC: LABWHC1 08:17
PROVIDERS: ATTEND Internal Medicine
DX: Z00.00 Encounter for general adult medical examination without abnormal findings (principal); Z12.5 Encounter for screening for malignant neoplasm of prostate; E83.52 Hypercalcemia
CPT/HCPCS: 36415; 80053; 80061; 82330; 84153; 84443; 85025

== ENCOUNTER → 2024-03-16 | Outpatient (CLI) | payer BC | END | disposition home or self-care (01) | LOC: LABWHC1 07:14 | PROVIDERS: ATTEND Internal Medicine | DX: Z53.9 Procedure and treatment not carried out, unspecified reason (principal) ==

== ENCOUNTER → 2024-07-06 | Outpatient (CLI) | payer BC ==
--- NOTE | 2024-07-06 15:20 | XR ---
EXAMINATION TYPE: XR foot complete RT DATE OF EXAM: 07/06/2024 3:00 PM COMPARISON: None. CLINICAL INDICATION: Male, 69 years old with history of M79.671 Pain rt foot, pain TECHNIQUE: Frontal, lateral, and oblique images of the right foot are obtained. FINDINGS: There is no acute fracture/dislocation evident in the right foot. Severe narrowing first m etatarsal phalangeal joint. The overlying soft tissue appears unremarkable. IMPRESSION: There is no acute fracture or dislocation in the right foot. [facility], , 07/06/2024 3:17 PM
== END | disposition home or self-care (01) ==
LOC: RADXRMAIN 14:45
PROVIDERS: ATTEND Internal Medicine
DX: M79.671 Pain in right foot (principal)